=== PATIENT | male | born 1955 | race Caucasian/White ===

== ENCOUNTER 2017-06-30 08:00 | Outpatient (CLI) | payer BC, MEDICAID, OTHER ==
[2017-06-30 19:33] LABS: ALBUMIN 4.2 g/dL (3.2-5.5); ALBUMIN/GLOBULIN RATIO 1.4 (1.0-2.2); ALKALINE PHOSPHATASE 62 IU/L (42-121); ALT ALANINE AMINOTRANSFERASE 22 IU/L (10-60); AST ASPARTATE AMINOTRANSFERASE 33 IU/L (10-42); BILIRUBIN,TOTAL 0.3 mg/dL (0.2-1.0); BUN - BLOOD UREA NITROGEN 14 mg/dL (6-20); CALCIUM 8.6 mg/dL (8.5-10.3); CARBON DIOXIDE - CO2 26 mmol/L (21-32); CHLORIDE 104 mmol/L (101-111); CHOL/HDL RATIO 4.8 (<5.0); CHOLESTEROL 240 mg/dL; GFR - MDRD 76 (>89); GLUCOSE 94 mg/dL (70-100); HDL CHOLESTEROL 50 mg/dL; LDL CHOLESTEROL,CALCULATED 162 mg/dL; LDL/HDL RATIO 3.2 (<3.6); SODIUM 136 mmol/L (135-145); TOTAL PROTEIN 7.1 g/dL (6.7-8.2); VLDL CHOLESTEROL 28 mg/dL
== END 2017-06-30 08:01 | disposition home or self-care (01) ==
LOC: LAB.S 08:00
PROVIDERS: ATTEND Nurse Practitioner Family
DX: Z13.1 Encounter for screening for diabetes mellitus (principal); Z13.220 Encounter for screening for lipoid disorders; Z12.5 Encounter for screening for malignant neoplasm of prostate
CPT/HCPCS: 36415; 80053; 80061; 83721; 84153

== ENCOUNTER 2017-10-06 14:46 | Outpatient (CLI) | payer MEDICAID ==
--- NOTE | 2017-10-06 16:46 | XRAY Report ---
Procedure Date: 10/06/2017 Accession Number: [id number] / [id number] Procedure: XRS - Lumbar Spine Complete CPT Code: FULL RESULT: EXAM: Lumbar Spine Complete DATE: 10/06/2017 3:14 PM CLINICAL HISTORY: LOW BACK PAIN, ACUTE COMPARISON: None. TECHNIQUE: AP, lateral and bilateral oblique views of the lumbar spine. FINDINGS: Alignment: Normal. No spondylolisthesis or scoliosis. Bones: Five yfb-vrx-phtihms lumbar vertebral bodies are present. No fractures or bone lesions. Disks: Disc height is generally preserved with minimal marginal osteophytosis formation. Facets: No degenerative changes. Sacroiliac Joints: Unremarkable. Soft Tissues: The visualized bowel gas pattern is unremarkable. Abdominal aortic atherosclerosis. IMPRESSION: No significant degenerative changes and no fracture or listhesis. Abdominal aortic atherosclerosis. RADIA
== END 2017-10-06 14:47 | disposition home or self-care (01) ==
LOC: DI.S 14:46
PROVIDERS: ATTEND Nurse Practitioner Family
DX: M54.5 Low back pain (principal); I70.0 Atherosclerosis of aorta
CPT/HCPCS: 72110

== ENCOUNTER 2018-11-25 05:50 | Emergency (ER) | payer BC, MEDICAID ==
[2018-11-25] MEDS ORDERED: SODIUM CHLORIDE 0.9% 1,000 ML IV ONE (06:08)
[2018-11-25] MEDS ORDERED: KETOROLAC 30 MG/ML VIAL IVP STA (06:08)
--- NOTE | 2018-11-25 06:09 | ED Physician Documentation ---
<Kathryn Crystal Mary - Last Filed: 11/25/18 07:30> PD HPI ABD PAIN - Stated complaint Stated Complaint: ABD PX - Chief complaint Chief Complaint: Abd Pain - History obtained from History obtained from: Patient - History of Present Illness Timing - onset: Today Timing - duration: Hours (4) Timing - details: Abrupt onset Pain level now: 8 Quality: Pain Radiation: Left flank Improved by: No: Vomiting Associated symptoms: No: Fever, Nausea, Vomiting, Dysuria, Hematuria Recently seen: Not recently seen - Additional information Additional information: This is a 63-year-old man who presents with his significant other complaints that he woke up this morning at about 145 with abdominal pain. He had a headache. The pain is been increasing since that time and he cannot get comfortable. He rates it a 7-8 out of 10. He tried taking Excedrin for it without relief. Has not noted anything that makes the pain worse. Had a similar episode 2 days ago in the middle of the night but that one resolved. Prior to that he never had pain like this before. Denies nausea or vomiting. He noted over the weekend that his urine was a little dark and cloudy but denies any dysuria or blood in the urine. No fever. He has a chronic cough due to smoking. Denies any abdominal surgeries. Review of Systems Constitutional: denies: Fever Throat: denies: Sore throat Cardiac: denies: Palpitations Respiratory: denies: Dyspnea, Cough GI: reports: Abdominal Pain. denies: Nausea, Vomiting, Diarrhea : denies: Dysuria, Hematuria Skin: denies: Rash Musculoskeletal: reports: Back pain PD PAST MEDICAL HISTORY - Past Medical History Past Medical History: No - Past Surgical History Past Surgical History: Yes - Present Medications Home Medications: Ambulatory Orders Medication Instructions Recorded Confirmed Hydrocodone/Acetaminophen 1 - 2 each PO Q6H PRN #14 tablet 11/25/18 [Hydrocodon-Acetaminophen 5-325] Tamsulosin [Flomax] 0.4 mg PO DAILY #7 capsule 11/25/18 - Allergies Allergies/Adverse Reactions: Allergies Allergy/AdvReac Type Severity Reaction Status Date / Time Penicillins AdvReac Hives Verified 11/25/18 05:56 - Social History Does the pt smoke?: Yes Smoking Status: Current every day smoker Does the pt drink ETOH?: Yes ETOH Use: Liquor Does the pt have substance abuse?: No - Immunizations Immunizations are current?: Yes PD ED PE NORMAL - Vitals Vital signs reviewed: Yes - General General: Alert and oriented X 3, No acute distress, Well developed/nourished, Other (Smells strongly of cigarette smoke) - HEENT HEENT: Atraumatic, Moist mucous membranes - Neck Neck: No adenopathy - Cardiac Cardiac: RRR, No murmur - Respiratory Respiratory: No respiratory distress, Clear bilaterally - Abdomen Abdomen: Normal bowel sounds, Soft, No organomegaly, Other (Tender in the left lower quadrant) - Back Back: Other (Left costovertebral angle tenderness). No: No CVA TTP - Derm Derm: Normal color, Warm and dry, No rash - Extremities Extremities: No edema - Neuro Neuro: Alert and oriented X 3, No motor deficit, No sensory deficit, Normal speech - Psych Psych: Normal mood, Normal affect PD MEDICAL DECISION MAKING - ED course Complexity details: reviewed results, d/w patient, d/w family ED course: The patient does have blood in his urine with normal renal function. His pain is essentially gone after 30 of Toradol IV and a liter of fluids. CT abdomen pelvis noncontrast has been ordered to rule out kidney stone. Care is turned over to Dr. Matias at 0730. Departure - Departure Disposition: 01 Home, Self Care Clinical Impression: Ureterolithiasis Condition: Stable Instructions: ED Stone Renal W Colic Follow-Up: [facility] [Provider Group] Antony Delacruz MD [Provider Admit Priv/Credential] - Prescriptions: Hydrocodone/Acetaminophen [Hydrocodon-Acetaminophen 5-325] 1 - 2 each PO Q6H PRN #14 tablet PRN Reason: pain Tamsulosin [Flomax] 0.4 mg PO DAILY #7 capsule <Sid Matias - Last Filed: 11/25/18 08:52> Results - Vitals Vitals: Vital Signs - 24 hr 11/25/18 05:54 Temperature 36.3 C L Heart Rate 80 Respiratory 17 Rate Blood Pressure 164/109 H O2 Saturation 96 Oxygen O2 Source Room air - Labs Labs: Laboratory Tests 11/25/18 11/25/18 11/25/18 06:10 06:15 06:15 WBC 8.4 RBC 4.62 L Hgb 15.3 Hct 44.0 MCV 95.2 H MCH 33.1 H MCHC 34.8 RDW 12.5 Plt Count 292 MPV 9.0 Neut # (Auto) 5.2 Lymph # (Auto) 2.0 [place] # (Auto) 0.8 Eos # (Auto) 0.3 Baso # (Auto) 0.1 Absolute Nucleated RBC 0.00 Nucleated RBC % 0.0 Sodium 139 Potassium 3.8 Chloride 106 Carbon Dioxide 26 Anion Gap 7.0 BUN 17 Creatinine 1.1 Estimated GFR (MDRD) 68 L Glucose 113 H Calcium 9.1 Total Bilirubin 0.6 AST 31 ALT 28 Alkaline Phosphatase 69 Total Protein 7.5 Albumin 4.3 Globulin 3.2 Albumin/Globulin Ratio 1.3 Lipase 27 Urine Color YELLOW Urine Clarity HAZY Urine pH 5.5 Ur Specific [place] >=1.030 H Urine Protein 30 H Urine Glucose (UA) NEGATIVE Urine Ketones NEGATIVE Urine Occult Blood LARGE H Urine Nitrite NEGATIVE Urine Bilirubin NEGATIVE Urine Urobilinogen 0.2 (NORMAL) Ur Leukocyte Esterase NEGATIVE Urine RBC TNTC H Urine WBC 0-3 Ur Squamous Epith Cells FEW Squamous Urine Crystals 3-5 Calcium Oxalate Urine Bacteria Rare Urine Mucus Moderate Strands Ur Microscopic Review INDICATED Urine Culture Comments NOT INDICATED - Rads (name of study) CT abdomen and pelvis Radiology: Prelim report reviewed (Impression: 7 mm calculus in the proximal left ureter causing moderate proximal hydroureter and moderate hydronephrosis. Nonobstructing 7 mm calculus in the lower pole of the left kidney. No right- sided urinary collecting system calculi.), EMP read indepedently, See rad report PD MEDICAL DECISION MAKING - ED course ED course: 63-year-old male with acute onset of flank pain 3 days ago has a 7 mm stone in the left upper ureter and he has excellent relief of pain with use of intravenous Toradol. He does not have a regular physician for follow-up he may need a urologist because of the size of his stone and I will make a referral to the urologist and a primary care clinic as well as provide a prescription for some tamsulosin and hydrocodone.
[2018-11-25 06:23] LABS: BASOPHILS # (AUTO) 0.1 10^3/uL (0.0-0.1); BASOPHILS % (AUTO) 1.1 %; EOSINOPHILS # (AUTO) 0.3 10^3/uL (0.0-0.7); EOSINOPHILS % (AUTO) 3.8 %; HGB - HEMOGLOBIN 15.3 g/dL (14.0-18.0); LYMPHOCYTES % (AUTO) 23.7 %; MEAN CORPUSCULAR HEMOGLOBIN 33.1 pg (27.0-31.0); MEAN CORPUSCULAR HGB CONC 34.8 g/dL (32.0-36.0); MEAN CORPUSCULAR VOLUME 95.2 fL (80.0-94.0); MONOCYTES # (AUTO) 0.8 10^3/uL (0.0-1.0); MONOCYTES % (AUTO) 9.4 %; NEUTROPHILS # (AUTO) 5.2 10^3/uL (1.5-6.6); NEUTROPHILS % (AUTO) 61.4 %; PLT - PLATELET COUNT 292 10^3/uL (130-450); RED BLOOD COUNT 4.62 10^6/uL (4.70-6.10); RED CELL DISTRIBUTION WIDTH 12.5 % (12.0-15.0); WHITE BLOOD COUNT 8.4 x10^3/uL (4.8-10.8)
[2018-11-25 06:36] LABS: ALBUMIN 4.3 g/dL (3.2-5.5); ALBUMIN/GLOBULIN RATIO 1.3 (1.0-2.2); BILIRUBIN,TOTAL 0.6 mg/dL (0.2-1.0); CALCIUM 9.1 mg/dL (8.5-10.3); CREATININE 1.1 mg/dL (0.6-1.2); TOTAL PROTEIN 7.5 g/dL (6.7-8.2)
[2018-11-25 06:40] LABS: BILIRUBIN,URINE NEGATIVE (NEGATIVE); GLUCOSE, URINE (UA) NEGATIVE (NEGATIVE); KETONES,URINE (UA) NEGATIVE (NEGATIVE); LEUKOCYTE ESTERASE, URINE NEGATIVE (NEGATIVE); NITRITE,URINE NEGATIVE (NEGATIVE); OCCULT BLOOD,URINE LARGE (NEGATIVE); PH,URINE 5.5 PH (5.0-7.5); PROTEIN,URINE 30 mg/dL (NEGATIVE); UROBILINOGEN,URINE 0.2 (NORMAL) E.U./dL (NORMAL)
[2018-11-25 06:41] LABS: CLARITY,URINE HAZY (CLEAR)
[2018-11-25 06:47] LABS: BACTERIA,URINE Rare /HPF (None Seen); CRYSTALS,URINE 3-5 Calcium Oxalate /LPF; MUCUS,URINE Moderate Strands; RBC,URINE TNTC /HPF (0-5); SQUAMOUS EPITHELIAL CELL,UR FEW Squamous (<= Few)
--- NOTE | 2018-11-25 08:10 | CT Report ---
Reason: L flank pain Procedure Date: 11/25/2018 Accession Number: [id number] / [id number] Procedure: CT - Abdomen/Pelvis WO CPT Code: FULL RESULT: EXAM: CT ABDOMEN AND PELVIS (CT KUB) EXAM DATE: 11/25/2018 07:47 AM. CLINICAL HISTORY: Left flank pain. COMPARISONS: None. TECHNIQUE: Routine axial helical CT imaging was performed through the abdomen and pelvis without IV contrast. Reconstructions: Coronal and sagittal. In accordance with CT protocol optimization, one or more of the following dose reduction techniques were utilized for this exam: automated exposure control, adjustment of mA and/or KV based on patient size, or use of iterative reconstructive technique. FINDINGS: Lung Bases: 1.6 cm granuloma at the left lung base. Right Kidney/Ureter: No stones, hydronephrosis, or hydroureter. No perinephric fat stranding. Left Kidney/Ureter: There is a 7 mm calculus within the proximal to mid left ureter, series 3 image 82. This is causing mild to moderate proximal left hydroureter and moderate hydronephrosis. There is an additional 7 mm nonobstructing calculus in the lower pole of the left kidney. Other Solid Organs: Noncontrast images of the solid organs are grossly unremarkable. Gallbladder/Bile Ducts: Unremarkable. Peritoneal Cavity: No free fluid, free air or irma adenopathy. Bowel is grossly unremarkable. Pelvic Organs: No bladder stones or wall thickening. Noncontrast images of the visualized pelvic organs are unremarkable. Vasculature: Unremarkable. Other: None. IMPRESSION: 7 mm calculus in the proximal left ureter causing moderate proximal hydroureter and moderate hydronephrosis. Nonobstructing 7 mm calculus in the lower pole at the left kidney. No right-sided urinary collecting system calculi. RADIA
[2018-11-25 09:05] VITALS: BP 133/92
[2018-11-25] MEDS ORDERED: HYDROcod/ACETAM 5/325 MG TABLET PO STA (09:10)
== END 2018-11-25 09:13 | disposition home or self-care (01) ==
LOC: ED 05:50
DX: N13.2 Hydronephrosis with renal and ureteral calculous obstruction (principal); F17.210 Nicotine dependence, cigarettes, uncomplicated
CPT/HCPCS: 36415; 74176; 80053; 81001; 83690; 85025; 96361; 96374; 99284; A9270; 81003; 87086

== ENCOUNTER 2020-08-01 08:00 | Outpatient (CLI) | payer BC, MEDICAID | END 2020-08-01 23:59 | disposition home or self-care (01) | LOC: LAB.S 08:00 | PROVIDERS: ATTEND Physician Assistant Medical | DX: R05 Cough (principal); Z20.822 Contact with and (suspected) exposure to COVID-19 ==

== ENCOUNTER 2020-08-01 08:00 | Outpatient (CLI) | payer BC, MEDICAID ==
--- NOTE | 2020-08-01 12:20 | XRAY Report ---
PROCEDURE: Chest 2 View X-Ray INDICATIONS: Cough TECHNIQUE: 2 view(s) of the chest. COMPARISON: None. FINDINGS: Surgical changes and devices: None. Lungs and pleura: No pleural effusions or pneumothorax. Lungs are clear. Mediastinum: Mediastinal contours are normal. Heart size is normal. Bones and chest wall: No suspicious bony abnormalities. Soft tissues appear unremarkable. IMPRESSION: No acute cardiopulmonary process demonstrated radiographically. Reviewed by: Davis Kraus MD on 08/01/2020 12:19 PM PDT Approved by: Davis Kraus MD on 08/01/2020 12:19 PM PDT Station ID: [id number]
== END 2020-08-01 23:59 | disposition home or self-care (01) ==
LOC: DI.S 08:00
PROVIDERS: ATTEND Physician Assistant Medical
DX: R05 Cough (principal); R06.02 Shortness of breath

== ENCOUNTER 2020-10-16 19:28 | Outpatient (CLI) | payer OTHER, MEDICAID | END 2020-10-16 19:29 | disposition home or self-care (01) | LOC: COV 19:28 | PROVIDERS: ATTEND Family Medicine | DX: Z20.822 Contact with and (suspected) exposure to COVID-19 (principal) ==

== ENCOUNTER 2022-06-03 09:11 | Outpatient (CLI) | payer OTHER, MEDICAID ==
[2022-06-03 14:40] LABS: BASOPHILS # (AUTO) 0.1 10^3/uL (0.0-0.1); BASOPHILS % (AUTO) 1.2 %; EOSINOPHILS # (AUTO) 0.3 10^3/uL (0.0-0.7); HCT - HEMATOCRIT 47.6 % (42.0-52.0); HGB - HEMOGLOBIN 16.1 g/dL (14.0-18.0); LYMPHOCYTES # (AUTO) 2.4 10^3/uL (1.5-3.5); LYMPHOCYTES % (AUTO) 28.3 %; MEAN CORPUSCULAR HEMOGLOBIN 33.7 pg (27.0-31.0); MEAN CORPUSCULAR HGB CONC 33.8 g/dL (32.0-36.0); MEAN CORPUSCULAR VOLUME 99.6 fL (80.0-94.0); MONOCYTES # (AUTO) 0.8 10^3/uL (0.0-1.0); MONOCYTES % (AUTO) 9.4 %; NEUTROPHILS # (AUTO) 4.9 10^3/uL (1.5-6.6); NEUTROPHILS % (AUTO) 56.9 %; PLT - PLATELET COUNT 280 10^3/uL (130-450); RED BLOOD COUNT 4.78 10^6/uL (4.70-6.10); RED CELL DISTRIBUTION WIDTH 12.1 % (12.0-15.0); WHITE BLOOD COUNT 8.6 x10^3/uL (4.8-10.8)
[2022-06-03 15:40] LABS: ALBUMIN 4.1 g/dL (3.2-5.5); ALBUMIN/GLOBULIN RATIO 1.3 (1.0-2.2); ALKALINE PHOSPHATASE 51 IU/L (42-121); ALT ALANINE AMINOTRANSFERASE 17 IU/L (10-60); AST ASPARTATE AMINOTRANSFERASE 23 IU/L (10-42); BILIRUBIN,TOTAL 0.7 mg/dL (0.2-1.0); BUN - BLOOD UREA NITROGEN 17 mg/dL (6-20); CALCIUM 8.8 mg/dL (8.5-10.3); CARBON DIOXIDE - CO2 26 mmol/L (21-32); CHLORIDE 108 mmol/L (101-111); CHOL/HDL RATIO 5.2 (<5.0); CHOLESTEROL 295 mg/dL; CREATININE 0.8 mg/dL (0.6-1.2); GFR - MDRD 97 (>89); GLUCOSE 97 mg/dL (70-100); HDL CHOLESTEROL 57 mg/dL; LDL CHOLESTEROL,CALCULATED 210 mg/dL; LDL/HDL RATIO 3.7 (<3.6); SODIUM 137 mmol/L (135-145); TOTAL PROTEIN 7.2 g/dL (6.7-8.2); TRIGLYCERIDES 140 mg/dL; VLDL CHOLESTEROL 28 mg/dL
[2022-06-03 15:45] LABS: THYROID STIMULATING HORMONE 1.38 uIU/mL (0.34-5.60)
== END 2022-06-03 09:12 | disposition home or self-care (01) ==
LOC: LAB.S 09:11
PROVIDERS: ATTEND Registered Nurse
DX: Z13.228 Encounter for screening for other metabolic disorders (principal); Z13.220 Encounter for screening for lipoid disorders; Z12.5 Encounter for screening for malignant neoplasm of prostate; Z13.29 Encounter for screening for other suspected endocrine disorder; Z13.0 Encounter for screening for diseases of the blood and blood-forming organs and certain disorders involving the immune mechanism
CPT/HCPCS: 36415; 80053; 80061; 83721; 84153; 84443; 85025

== ENCOUNTER 2022-06-20 06:53 | Outpatient (CLI) | payer OTHER ==
--- NOTE | 2022-06-20 09:26 | CT Report ---
PROCEDURE: Low Dose Lung Cancer Screen INDICATIONS: NICOTINE DEPENDENCE TECHNIQUE: Noncontrast low-dose axial images were acquired from the pulmonary apices to the posterior costophren ic angles. Multiplanar MIP reformats were then reconstructed. For radiation dose reduction, the follo wing was used: automated exposure control, adjustment of mA and/or kV according to patient size. COMPARISON: CT abdomen pelvis 11/25/2018. FINDINGS: Image quality: Excellent. Prior cancer history: Unsure. Lungs and pleura: Mild emphysema. Nodules include: -Right lower lobe: 5 mm subpleural (). -Left lower lobe: 16 mm partially calcified nodule () not significantly changed since 2018. Clustered centrilobular micronodules also present at the anterior right lower lobe, likely infectious /inflammatory. No pleural effusion. Mediastinum: Heart size is normal. No pericardial effusions. One vessel coronary artery calcificatio ns. Chest wall and lower neck: No axillary or supraclavicular adenopathy by size. Bones: No aggressive osseous abnormality. Upper Abdomen: Unremarkable. IMPRESSION: Lung RAD: 2 - Benign. Recommendation: Continue annual screening in 12 Months with LDCT Clustered micronodules present at the anterior right upper lobe are likely infectious/inflammatory, s uch as aspiration or bronchopneumonia. Reviewed by: Da Baker MD on 06/20/2022 9:24 AM PDT Approved by: Da Baker MD on 06/20/2022 9:24 AM PDT Station ID: [id number]
--- NOTE | 2022-06-20 15:35 | Ultrasound Report ---
PROCEDURE: Aorta Screening INDICATIONS: NICOTINE DEPENDENCE TECHNIQUE: Real time scanning was performed of the aorta and iliac arteries, with image documentatio n. COMPARISON: None. FINDINGS: Aorta: Proximal aortic diameter measures 2.9 x 2.6 cm. Mid-aorta measures 2.2 x 2.3 cm. Distal aor tic diameter is 3.0 x 2.6 cm cm. Iliac arteries: Right common iliac artery measures 1.5 x 1.4 cm. Left common iliac artery measures 1.2 cm. IMPRESSION: Slight ectasia/aneurysmal dilation of the distal abdominal aorta as well as right common iliac. Reviewed by: Yeimi Jacinto MD on 06/20/2022 3:33 PM PDT Approved by: Yeimi Jacinto MD on 06/20/2022 3:33 PM PDT Station ID: [id number]
== END 2022-06-20 06:54 | disposition home or self-care (01) ==
LOC: DI 06:53
PROVIDERS: ATTEND Registered Nurse
DX: Z12.2 Encounter for screening for malignant neoplasm of respiratory organs (principal); Z13.6 Encounter for screening for cardiovascular disorders; R91.8 Other nonspecific abnormal finding of lung field; I71.40 Abdominal aortic aneurysm, without rupture, unspecified; I72.3 Aneurysm of iliac artery; F17.210 Nicotine dependence, cigarettes, uncomplicated

== ENCOUNTER 2022-07-23 12:16 | Outpatient (CLI) | payer OTHER | END 2022-07-23 12:17 | disposition short-term general hospital (02) | LOC: EMS 12:16 | DX: R07.89 Other chest pain (principal); M79.602 Pain in left arm; R06.02 Shortness of breath | CPT/HCPCS: A0425; A0427 ==

== ENCOUNTER 2023-01-16 13:33 | Emergency (ER) | payer MEDICAID, MEDICARE, OTHER ==
[2023-01-16 14:03] LABS: BASOPHILS # (AUTO) 0.1 10^3/uL (0.0-0.1); BASOPHILS % (AUTO) 0.4 %; EOSINOPHILS % (AUTO) 0.1 %; HCT - HEMATOCRIT 42.8 % (42.0-52.0); HGB - HEMOGLOBIN 14.5 g/dL (14.0-18.0); LYMPHOCYTES % (AUTO) 5.6 %; MEAN CORPUSCULAR HEMOGLOBIN 32.7 pg (27.0-31.0); MEAN CORPUSCULAR HGB CONC 33.9 g/dL (32.0-36.0); MEAN CORPUSCULAR VOLUME 96.6 fL (80.0-94.0); MEAN PLATELET VOLUME 9.1 fL (7.4-11.4); MONOCYTES % (AUTO) 5.9 %; NEUTROPHILS # (AUTO) 14.9 10^3/uL (1.5-6.6); NEUTROPHILS % (AUTO) 87.6 %; PLT - PLATELET COUNT 280 10^3/uL (130-450); RED BLOOD COUNT 4.43 10^6/uL (4.70-6.10); RED CELL DISTRIBUTION WIDTH 12.4 % (12.0-15.0)
[2023-01-16 14:11] LABS: ALBUMIN 4.5 g/dL (3.2-5.5); BILIRUBIN,TOTAL 0.6 mg/dL (0.2-1.0); CALCIUM 9.1 mg/dL (8.5-10.3); CREATININE 1.1 mg/dL (0.6-1.3); TOTAL PROTEIN 6.7 g/dL (6.4-8.9)
[2023-01-16] MEDS ORDERED: SODIUM CHLORIDE 0.9% 1,000 ML IV STA (14:36)
[2023-01-16] MEDS ORDERED: ONDANSETRON 4 MG/2 ML VIAL IVP STA (14:36)
[2023-01-16] MEDS ORDERED: HYDROmorphone 1 MG/ML CARPUJECT IVP STA ×2 (14:36→16:15)
[2023-01-16] MEDS ORDERED: KETOROLAC 15 MG/ML VIAL IVP STA (14:36)
--- NOTE | 2023-01-16 14:37 | ED Physician Documentation ---
PD HPI ABD PAIN - Stated complaint Stated Complaint: LT BACK/SIDE PX - Chief complaint Chief Complaint: Abd Pain - History obtained from History obtained from: Patient - Additional information Additional information: 67-year-old gentleman with history of renal colic necessitating intervention about 4 years ago developed left flank and lower abdominal pain suddenly this morning with 1 episode of vomiting. No urinary complaints. No fevers. Feels reminiscent of prior renal colic. PD PAST MEDICAL HISTORY - Past Medical History Past Medical History: Yes Cardiovascular: High cholesterol : Kidney stones - Past Surgical History Past Surgical History: Yes - Present Medications Home Medications: Ambulatory Orders Medication Instructions Recorded Confirmed Hydrocodone/Acetaminophen 1 - 2 each PO Q6H PRN #14 tablet 11/25/18 [Hydrocodon-Acetaminophen 5-325] Tamsulosin [Flomax] 0.4 mg PO DAILY #7 capsule 11/25/18 Ibuprofen [Motrin] 600 mg PO Q6H PRN #30 tab 01/16/23 Oxycodone HCl/Acetaminophen 1 - 2 each PO Q6H PRN #14 tablet 01/16/23 [Percocet 5-325 mg Tablet] Tamsulosin [Flomax] 0.4 mg PO DAILY #14 cap 01/16/23 - Allergies Allergies/Adverse Reactions: Allergies Allergy/AdvReac Type Severity Reaction Status Date / Time Penicillins AdvReac Hives Verified 01/16/23 15:38 - Social History Does the pt smoke?: Yes Smoking Status: Current every day smoker Does the pt drink ETOH?: Yes Does the pt have substance abuse?: No - Immunizations Immunizations are current?: Yes PD ED PE NORMAL - Vitals Vital signs reviewed: Yes - General General: Alert and oriented X 3, Other (Mildly uncomfortable) - Abdomen Abdomen: Normal bowel sounds, Soft, Non tender - Neuro Neuro: Alert and oriented X 3, Normal speech Results - Vitals Vitals: Vital Signs - 24 hr 01/16/23 13:41 Temperature 36.1 C L Heart Rate 77 Respiratory 18 Rate Blood Pressure 151/94 H O2 Saturation 99 Oxygen O2 Source Room air - Labs Labs: Laboratory Tests 01/16/23 01/16/23 01/16/23 13:53 13:53 15:13 WBC 17.0 H RBC 4.43 L Hgb 14.5 Hct 42.8 MCV 96.6 H MCH 32.7 H MCHC 33.9 RDW 12.4 Plt Count 280 MPV 9.1 Neut # (Auto) 14.9 H Lymph # (Auto) 1.0 L [place] # (Auto) 1.0 Eos # (Auto) 0.0 Baso # (Auto) 0.1 Absolute Nucleated RBC 0.00 Nucleated RBC % 0.0 Sodium 135 Potassium 4.0 Chloride 101 Carbon Dioxide 22 Anion Gap 12.0 BUN 16 Creatinine 1.1 Estimated GFR (MDRD) 67 L Glucose 123 H Calcium 9.1 Total Bilirubin 0.6 AST 25 ALT 19 Alkaline Phosphatase 71 Total Protein 6.7 Albumin 4.5 Globulin 2.2 Albumin/Globulin Ratio 2.0 Lipase 23 Urine Color BROWN Urine Clarity CLEAR Urine pH Ur Specific [place] Urine Protein Urine Glucose (UA) NEGATIVE Urine Ketones Urine Occult Blood Urine Nitrite NEGATIVE Urine Bilirubin NEGATIVE Urine Urobilinogen 0.2 (NORMAL) Ur Leukocyte Esterase NEGATIVE Urine RBC 11-25 H Urine WBC 6-10 H Ur Squamous Epith Cells NONE SEEN Urine Bacteria Few Urine Mucus Moderate Strands Ur Microscopic Review INDICATED Urine Culture Comments NOT INDICATED - Rads (name of study) CT KUB demonstrating 4 mm proximal left ureteral stone with moderate hydronephrosis and multiple nonobstructing stones Relevant Findings:: Final report received, EMP independent interpretation of test PD Medical Decision Making - ED course ED course: 67-year-old gentleman presents with acute left-sided pain likely renal colic proven on CT. Has a white count of 17,000 on CBC, likely demargination as there is no sign or symptom of infection. Renal function good. He was feeling much better after 1 mg of IV hydromorphone and 15 mg of IV ketorolac. Departure - Departure Disposition: 01 Home, Self Care Clinical Impression: Ureterolithiasis Condition: Good Record reviewed to determine appropriate education?: Yes Instructions: ED Stone Renal W Colic Follow-Up: Espinoza Lanza MD [Provider Admit Priv/Credential] - Prescriptions: Tamsulosin [Flomax] 0.4 mg PO DAILY #14 cap Ibuprofen [Motrin] 600 mg PO Q6H PRN #30 tab PRN Reason: Pain Oxycodone HCl/Acetaminophen [Percocet 5-325 mg Tablet] 1 - 2 each PO Q6H PRN #14 tablet PRN Reason: pain Comments: The stone is smaller than the one you had a few years ago, but still reasonable for you to follow-up with the urologist. The numbers on this form, call for next available appointment. I sent your prescription electronically to the [facility] in [place]. I am prescribing a short course of narcotic pain medication for you. These are potentially dangerous and addictive medications that should be used carefully. These medications may constipate you. Take an elrp-acl-utmxucd stool softener (docusate) twice daily with plenty of water while taking these medications. If you go 24 hours without a bowel movement, take ywic-pnt-czyfpmz miralax, per package instructions. Do not drink or drive while taking these medications. If you received narcotic or sedating medications while in the emergency department, do not drive for 24 hours. Store this medication in a safe, secure place and out of reach of children. It is a violation of federal law to give or sell this medication to another person or to use in a manner other than prescribed. The ED will not refill narcotic prescriptions, including prescriptions lost or stolen. To dispose of unwanted medications: 1. [facility] provides a drop box for medication in pill form only (no liquids) 8:00 am to 4:30 p.m. Friday-Friday in the lobby of the [facility] [place], [address] [place] [address]. Empty pills into ziplock bag before disposal. Call [phone] for information. 2.[employer] is a free service available to all [facility] residents. Go to [email or web address] Note that many narcotic pain relievers also contain Tylenol/acetaminophen. Please ensure that your total dose of acetaminophen from all sources does not exceed 3 g (3000 mg) per day. Forms: PCP List
[2023-01-16 15:23] LABS: GLUCOSE, URINE (UA) NEGATIVE (NEGATIVE); LEUKOCYTE ESTERASE, URINE NEGATIVE (NEGATIVE); NITRITE,URINE NEGATIVE (NEGATIVE); UROBILINOGEN,URINE 0.2 (NORMAL) E.U./dL (NORMAL)
[2023-01-16 15:26] LABS: BILIRUBIN,URINE NEGATIVE (NEGATIVE); CLARITY,URINE CLEAR (CLEAR); ICTOTEST,URINE NEGATIVE
[2023-01-16 15:31] LABS: BACTERIA,URINE Few /HPF (None Seen); MUCUS,URINE Moderate Strands; SQUAMOUS EPITHELIAL CELL,UR NONE SEEN (<= Few)
--- NOTE | 2023-01-16 16:02 | CT Report ---
PROCEDURE: ABDOMEN/PELVIS WO INDICATIONS: L flank pain TECHNIQUE: A CT scan of the abdomen and pelvis was performed without the use of intravenous contrast. Images we re recorded and evaluated at appropriate window settings. Reformats: coronal and sagittal. For radiat ion dose reduction, the following was used: automated exposure control, adjustment of mA and/or kV ac cording to patient size. COMPARISON: CT abdomen and pelvis without contrast dated 11/25/2018 FINDINGS: Image quality: Excellent. Lung bases and heart: Unremarkable. Liver: No solid mass. Gallbladder and biliary tree: No radiopaque stones or wall thickening. No biliary dilation. Spleen: No splenomegaly. Pancreas: No pancreatic ductal dilation. Adrenals: No adrenal nodule. Kidneys and ureters: Right kidney and ureter are unremarkable. No stones or hydronephrosis. Left kidn ey demonstrates moderate hydronephrosis. There is inflammatory change in the perirenal fat. There are multiple tiny nonobstructing stones. The proximal left ureter is dilated. There is an obstructing st one present in the right ureter at the level of L4, measuring approximately 4 mm in diameter. Bowel and peritoneum: No bowel distension. No pathologic free fluid. Lymph nodes: No central or retroperitoneal adenopathy. Vessels: No infrarenal aortic aneurysm. PELVIS Reproductive organs: Unremarkable. Bladder: No wall thickness, accounting for underdistention. Pelvic lymph nodes: No pelvic adenopathy by size criteria. Bones: No aggressive osseous abnormality. Other: Probable small bilateral fat-containing inguinal hernias. IMPRESSION: 1. A 4 mm stone obstructs the proximal left ureter resulting in moderate left hydronephrosis. 2. Multiple tiny nonobstructing left renal stones. Reviewed by: Braden Esparza MD on 01/16/2023 4:00 PM PST Approved by: Braden Esparza MD on 01/16/2023 4:00 PM PST Station ID: [id number]
[2023-01-16 16:30] VITALS: BP 151/90; O2SAT 94
== END 2023-01-16 16:51 | disposition home or self-care (01) ==
LOC: ED 13:33
DX: N13.2 Hydronephrosis with renal and ureteral calculous obstruction (principal); F17.200 Nicotine dependence, unspecified, uncomplicated
CPT/HCPCS: 36415; 74176; 80053; 81001; 83690; 85025; 96374; 96375; 96376; 99284; 99285; J1170; 81003; 87086

== ENCOUNTER 2023-03-22 13:05 | Outpatient (CLI) | payer MEDICARE ==
--- NOTE | 2023-03-23 12:49 | Ultrasound Report ---
PROCEDURE: Renal (Retroperitoneal) INDICATIONS: NEPHROLITHIASIS TECHNIQUE: Real-time scanning was performed of the retroperitoneal organs, with image documentation. COMPARISON: CT abdomen and pelvis on January 16, 2023. FINDINGS: Kidneys: Kidneys are normal in size. Right kidney measures 11.4 cm long; left kidney measures 12.7 cm long. Right renal cortical thickness is 0.9 cm; left renal cortical thickness is 0.9 cm. No righ t-sided hydronephrosis or nephrolithiasis. Moderate left-sided hydronephrosis and hydroureter with ne phrolith in the proximal ureter measuring 0.8 x 0.5 x 0.8 cm. No solid masses bilaterally. Anechoic simple cyst in the right lower pole measuring 2.4 x 2.3 x 2.2 cm. Bladder: Pre-void bladder volume is 102 mL. Post-void residual is 34 mL. Pre-void images demonstra te no intraluminal masses or stones. On pre-void images, bilateral ureteral jets are noted with colo r Doppler interrogation. (Of note, ureteral jets may not be detectable in up to 25% of cases due to insufficient differences in specific gravity between ureteral and bladder urine). Miscellaneous: No free abdominal fluid. Prostate measures 0.6 x 1 x 0.6 cm with coarse calcificatio ns. IMPRESSION: 1.Left sided moderate hydronephrosis and proximal hydroureter with a partially obstructive nephrolith in the proximal ureter measuring 0.8 x 0.5 x 0.8, persistent since at least January 16, 2023. Recom mend Urology consultation. 2.There are bilateral ureteral jets. 3.No right-sided hydronephrosis or nephrolithiasis. Reviewed by: Christopher Servin MD on 03/23/2023 12:47 PM PST Approved by: Christopher Servin MD on 03/23/2023 12:47 PM PST Station ID: [id number]
== END 2023-03-22 13:06 | disposition home or self-care (01) ==
LOC: DI 13:05
PROVIDERS: ATTEND Urology
DX: N13.2 Hydronephrosis with renal and ureteral calculous obstruction (principal)

== ENCOUNTER 2023-04-07 08:00 | Outpatient (CLI) | payer MEDICARE | END 2023-04-07 23:59 | disposition home or self-care (01) | LOC: LAB 08:00 | PROVIDERS: ATTEND Urology | DX: R35.0 Frequency of micturition (principal) | CPT/HCPCS: 87086 ==

== ENCOUNTER 2023-04-14 10:23 | Day surgery (SDC) | payer MEDICARE ==
[~2023-04-14 10:23] MED LIST: ceFAZolin 2 GM VIAL ONE
[2023-04-14] MEDS: LACTATED RINGERS 1,000 ML IV ONE ×2 (10:31→12:29)
[2023-04-14] MEDS ORDERED: LIDOCAINE 2% URO-JET 5 ML SYRINGE UR ONE (11:13)
[2023-04-14] MEDS ORDERED: MORPHINE 2 MG/ML CARPUJECT IVP PRN (11:22)
[2023-04-14] MEDS ORDERED: METOCLOPRAMIDE 10 MG/2 ML VIAL IVP PRN (11:22)
[2023-04-14] MEDS ORDERED: ONDANSETRON 4 MG/2 ML VIAL IVP PRN ×3 (11:22→12:21)
[2023-04-14] MEDS ORDERED: fentaNYL 100 MCG/2 ML VIAL IVP PRN (11:22)
[2023-04-14] MEDS ORDERED: ePHEDrine 50 MG/ML VIAL IVP PRN (11:22)
[2023-04-14] MEDS ORDERED: ATROPINE ABBOJECT 1 MG/10 ML SYRINGE IVP PRN (11:22)
[2023-04-14] MEDS ORDERED: NALOXONE 0.4 MG/ML VIAL IVP PRN (11:22)
[2023-04-14] MEDS ORDERED: HYDROmorphone 0.5 MG/0.5 ML SYRINGE IVP PRN (11:22)
--- NOTE | 2023-04-14 11:22 | ANESTHESIA ---
Pre-Anesthesia VS, & Labs - Diagnosis L ureteral stone - Procedure cystoscopy, L ureteral stent, laser lithotripsy Vital Signs: Temp Pulse Resp BP Pulse Ox O2 Flow Rate 36.2 C L 95 20 148/108 H 97 04/14/23 10:31 04/14/23 10:31 04/14/23 10:31 04/14/23 10:31 04/14/23 10:31 Height: 6 ft Weight (kg): 88 kg Body Mass Index: 26.3 BMI Classification: Overweight - NPO >8 hours Home Medications and Allergies Home Medications: Ambulatory Orders Albuterol Sulf [Ventolin Hfa Inhaler] 2 puffs PO Q4HR PRN 04/07/23 Atorvastatin Calcium [Lipitor] 80 mg PO DAILY 04/07/23 Excedrin 2 tab PO HS 04/14/23 diphenhydrAMINE [Benadryl] 1 cap PO HS 04/14/23 Albuterol Sulf [Ventolin Hfa Inhaler] 2 puffs PO Q4HR PRN 04/07/23 Atorvastatin Calcium [Lipitor] 80 mg PO DAILY 04/07/23 Excedrin 2 tab PO HS 04/14/23 diphenhydrAMINE [Benadryl] 1 cap PO HS 04/14/23 Allergies/Adverse Reactions: Allergies Allergy/AdvReac Type Severity Reaction Status Date / Time Penicillins AdvReac Hives Verified 04/14/23 10:32 Anes History & Medical History - Anesthetic History Anesthesia Complications: reports: No previous complications Family history of Anesthesia Complications: Denies Family history of Malignant Hyperthermia: Denies - Medical History Cardiovascular: reports: Hypertension, High cholesterol Pulmonary: reports: None, COPD Gastrointestinal: reports: None Urinary: reports: Kidney stones Musculoskeletal: reports: None, Chronic back pain Endocrine/Autoimmune: reports: None Skin: reports: None Smoking Status: Current every day smoker Psychosocial: reports: Alcohol (heavy ETOH use) History of Cancer?: No Exam General: Alert, Oriented x3, Cooperative Dental: Other (edentulous) Mouth Openin Fingerbreadth Neck Mobility: Normal Mallampati classification: I Thyromental Distance: 4-6 cm Respiratory: Lungs clear Cardiovascular: Regular rate Plan Anesthesia Type: General Consent for Procedure(s) Verified and Reviewed: Yes Code Status: Attempt Resuscitation ASA classification: 3-Severe systemic disease Is this case an emergency?: No
[2023-04-14] MEDS ORDERED: MIDAZOLAM 2 MG/2 ML VIAL ONE (11:33)
[2023-04-14] MEDS ORDERED: fentaNYL 100 MCG/2 ML VIAL ONE (11:33)
[2023-04-14] MEDS ORDERED: LIDOCAINE-PF 2% 10 ML AMP SUBQ ONE (11:33)
[2023-04-14] MEDS ORDERED: PROPOFOL 200 MG/20 ML VIAL IVP ONE (11:33)
[2023-04-14] MEDS ORDERED: LACTATED RINGERS 1,000 ML IV SCH (12:00)
[2023-04-14] MEDS ORDERED: DEXAMETHASONE 4 MG/ML VIAL ONE (12:11)
[2023-04-14] MEDS ORDERED: KETOROLAC 30 MG/ML VIAL ONE (12:11)
[2023-04-14] MEDS ORDERED: ONDANSETRON 4 MG/2 ML VIAL ONE (12:11)
[2023-04-14] MEDS ORDERED: HYDROcod/ACETAM 5/325 MG TABLET PO PRN (12:21)
--- NOTE | 2023-04-14 12:26 | Discharge Plan ---
Discharge Plan Problem Reviewed?: Yes Disposition: Home, Self Care Condition: Good Prescriptions: Docusate Sodium 100Mg Capsule [Colace 100Mg Capsule] 100 mg PO DAILY #7 cap HYDROcod/ACETAM 5/325 [Ladora 5/325] 1 tab PO Q4H PRN #10 tablet PRN Reason: Pain Diet: Regular Activity Restrictions: No Restrictions Shower Restrictions: No Driving Restrictions: No Instruction Topics: Stents Ureteral Additional Instructions or Follow Up instructions: Please remove the stent by pulling on the string on April 17 in the morning. It is normal for blood and urine to come out with this. You will be contacted for follow-up in 3 months time No Smoking: If you smoke, Please STOP! Call for help.
--- NOTE | 2023-04-14 12:46 | OPERATIVE REPORT ---
Operative Report - General Procedure Date: 04/14/23 Planned Procedure: Cystoscopy, left ureteroscopy, laser lithotripsy, stent Pre-Op Diagnosis: Left ureteral stone Procedure Performed: Cystoscopy, left ureteroscopy, laser lithotripsy, stent Post Op Diagnosis: Left ureteral stone - Procedure Note Primary Surgeon: Pool Anesthesia Provider: LORE Garcia Anesthesia Technique: General LMA Pathology: none Findings: Left distal 4 mm ureteral stone Complications: none - Other Other Information/Narrative: After informed consent was obtained the patient was brought to the OR and laid in the supine position. He was anesthetized per anesthesia protocols and prepped and draped in usual sterile fashion in the dorsolithotomy position. A formal timeout was performed reconfirming the patient, procedure and la terality. A 22 Stateless cystoscope was advanced easily into the urinary bladder. He had an enlarged prostate with moderate lateral lobe hypertrophy but no median lobe. His bladder was inspected and full there were no masses, lesions or other concerns. He had 1+ trabeculations. His left ureteral orifice was cannulated with a sensor wire. A flexible ureteroscope was advanced easily over this wire up in the kidney. Up in the kidney we could not identify any stones and so we cleared his ureter down to the distal ureter and we found the stone about a centimeter proximal to the UVJ. This would explain his recent lower urinary tract symptoms as he probably had this stone irritating his bladder. The flexible ureteroscope was removed and a short semirigid ureteroscope was placed instead. Using a 272 m laser fiber at a power of 0.8 and a rate of 8 the stone was then dusted into small fragments. A 6 Stateless 26 cm double-J ureteral stent was placed with good curling noted in the kidney and good curling noted in the bladder. His bladder was empty. A Uro-Jet was placed. The string was kept in place and taped to his penis using a Tegaderm. This concluded the procedure and the patient tolerated the procedure well. He will remove the stent on . He will follow-up with me in 3 months time
[2023-04-14 12:52] VITALS: O2SAT 96
[2023-04-14 13:31] VITALS: BP 133/84
--- NOTE | 2023-04-14 17:07 | XRAY Report ---
PROCEDURE: OR C-Arm Procedure INDICATIONS: STONES AND STENT PLACEMENT FLUORO TIME: 0.01 MIN Air kerma: 2.5 mGy TECHNIQUE: 5 intraprocedural fluoroscopic images from a from C-arm are provided COMPARISON: None. FINDINGS/IMPRESSION: Surgical devices project over the pelvis.Referred to surgical note for procedure details and findings . Reviewed by: Isaias Valencia MD on 04/14/2023 5:05 PM PST Approved by: Isaias Valencia MD on 04/14/2023 5:05 PM PST Station ID: [id number]
--- NOTE | 2023-04-17 14:53 | ANESTHESIA POST OP EVALUATION ---
Anesthesia Post Eval - Post Anesthesia Eval Vitals: Last Vital Signs Temp 36.2 C L 04/14/23 13:18 Pulse 70 04/14/23 13:28 Resp 12 04/14/23 13:28 BP 133/84 H 04/14/23 13:28 Pulse Ox 96 04/14/23 13:28 O2 Flow Rate CV Function Including HR & BP: Stable Pain Control: Satisfactory Nausea & Vomiting: Negative Mental Status: Baseline Respiratory Status: Airway Patent Hydration Status: Satisfactory Anesthesia Complications: None
== END 2023-04-14 10:24 | disposition home or self-care (01) ==
LOC: SDS 10:23
PROVIDERS: ATTEND Urology
PROC: 0T778DZ Dilation of Left Ureter with Intraluminal Device, Via Natural or Artificial Opening Endoscopic (ICD-10-PCS; 2023-04-14)
PROC: 0TF78ZZ Fragmentation in Left Ureter, Via Natural or Artificial Opening Endoscopic (ICD-10-PCS; principal; 2023-04-14 11:45)
DX: N20.1 Calculus of ureter (principal); N40.0 Benign prostatic hyperplasia without lower urinary tract symptoms; J44.9 Chronic obstructive pulmonary disease, unspecified; F17.200 Nicotine dependence, unspecified, uncomplicated
CPT/HCPCS: 52356; C1758; C2617; J7120

== ENCOUNTER 2023-07-14 08:29 | Outpatient (CLI) | payer MEDICARE ==
[2023-07-14 14:32] LABS: BASOPHILS # (AUTO) 0.1 10^3/uL (0.0-0.1); BASOPHILS % (AUTO) 0.9 %; EOSINOPHILS # (AUTO) 0.3 10^3/uL (0.0-0.7); EOSINOPHILS % (AUTO) 3.5 %; HCT - HEMATOCRIT 46.1 % (42.0-52.0); HGB - HEMOGLOBIN 15.1 g/dL (14.0-18.0); LYMPHOCYTES # (AUTO) 2.5 10^3/uL (1.5-3.5); LYMPHOCYTES % (AUTO) 25.6 %; MEAN CORPUSCULAR HEMOGLOBIN 32.5 pg (27.0-31.0); MEAN CORPUSCULAR HGB CONC 32.8 g/dL (32.0-36.0); MEAN CORPUSCULAR VOLUME 99.4 fL (80.0-94.0); MEAN PLATELET VOLUME 9.7 fL (7.4-11.4); NEUTROPHILS # (AUTO) 5.9 10^3/uL (1.5-6.6); NEUTROPHILS % (AUTO) 59.7 %; PLT - PLATELET COUNT 306 10^3/uL (130-450); RED BLOOD COUNT 4.64 10^6/uL (4.70-6.10); RED CELL DISTRIBUTION WIDTH 12.6 % (12.0-15.0); WHITE BLOOD COUNT 9.8 x10^3/uL (4.8-10.8)
[2023-07-14 14:54] LABS: ALBUMIN 4.6 g/dL (3.2-5.5); ALBUMIN/GLOBULIN RATIO 1.6 (1.0-2.2); ALKALINE PHOSPHATASE 66 IU/L (42-121); ALT ALANINE AMINOTRANSFERASE 14 IU/L (10-60); AST ASPARTATE AMINOTRANSFERASE 21 IU/L (10-42); BILIRUBIN,TOTAL 0.8 mg/dL (0.2-1.0); BUN - BLOOD UREA NITROGEN 16 mg/dL (6-20); CALCIUM 9.8 mg/dL (8.5-10.3); CARBON DIOXIDE - CO2 28 mmol/L (21-32); CHLORIDE 102 mmol/L (101-111); CHOL/HDL RATIO 3.1 (<5.0); CHOLESTEROL 198 mg/dL; CREATININE 0.8 mg/dL (0.6-1.3); GFR - MDRD 97 (>89); GLUCOSE 90 mg/dL (74-104); HDL CHOLESTEROL 64 mg/dL; LDL CHOLESTEROL,CALCULATED 87 mg/dL; LDL/HDL RATIO 1.4 (<3.6); POTASSIUM 3.9 mmol/L (3.5-4.5); SODIUM 136 mmol/L (135-145); TOTAL PROTEIN 7.5 g/dL (6.4-8.9); TRIGLYCERIDES 237 mg/dL (48-352); VLDL CHOLESTEROL 47 mg/dL
[2023-07-14 15:08] LABS: THYROID STIMULATING HORMONE 1.22 uIU/mL (0.34-5.60)
== END 2023-07-14 08:30 | disposition home or self-care (01) ==
LOC: LAB.S 08:29
PROVIDERS: ATTEND Registered Nurse
DX: R03.0 Elevated blood-pressure reading, without diagnosis of hypertension (principal); Z13.228 Encounter for screening for other metabolic disorders; I25.10 Atherosclerotic heart disease of native coronary artery without angina pectoris; Z12.5 Encounter for screening for malignant neoplasm of prostate; Z13.29 Encounter for screening for other suspected endocrine disorder
CPT/HCPCS: 36415; 80053; 80061; 84443; 85025; G0103; 83721; 84153